=== PATIENT | female | born 1975 | race Two or more races ===

== ENCOUNTER → 2021-06-29 | Outpatient (REF) | LOC: M LABSMTC 12:56 | PROVIDERS: ATTEND Pediatrics | DX: Z20.822 Contact with and (suspected) exposure to COVID-19 (principal) ==

== ENCOUNTER 2021-07-16 09:09 | Emergency (ER) | payer OTHER ==
[~2021-07-16] VITALS: Ht 170.2 cm; Wt 89.6 kg
[2021-07-16] MEDS ORDERED: ADDE1TAB14 PO (09:29)
[2021-07-16] MEDS ORDERED: LAMO25TA4 (09:29)
[2021-07-16] MEDS ORDERED: AMIT75TA (09:29)
[2021-07-16] MEDS ORDERED: ROSU20TA5 (09:29)
[2021-07-16] MEDS ORDERED: JARD1TAB3 (09:29)
[2021-07-16] MEDS ORDERED: ALBU8.5H (09:29)
[2021-07-16] MEDS ORDERED: TRUL0.5I (09:29)
[2021-07-16] MEDS ORDERED: RABE1TAB4 (09:29)
[2021-07-16] MEDS ORDERED: DIAZ5TAB (09:29)
[2021-07-16] MEDS ORDERED: TIZA4CAP (09:29)
[2021-07-16] MEDS ORDERED: MONT10TA97 (09:29)
[2021-07-16] MEDS ORDERED: HYDR-3363 (09:29)
[2021-07-16] MEDS ORDERED: ROPI2TAB3 (09:29)
[2021-07-16] MEDS ORDERED: AZEL1SPR3 (09:29)
[2021-07-16] MEDS ORDERED: ONDANSETRON 4MG/2ML VIAL IV ONE (10:05)
[2021-07-16] MEDS ORDERED: NS 1,000 ML IV ONE (10:05)
[2021-07-16 10:30] LABS: BASO % 0.3 % (0.0-1.0); EOS # 0.1 10^3/uL (0.0-0.5); EOS % 1.5 % (0.0-3.0); HEMATOCRIT 45.8 % (36.0-47.0); HEMOGLOBIN 15.3 g/dl (12.0-15.5); LYMPH % 37.4 % (24.0-44.0); MEAN CORPUSCULAR HGB CONC 33.4 g/dl (32.0-36.5); MEAN CORPUSCULAR VOLUME 83.7 fl (80.0-96.0); MONO # 0.6 10^3/uL (0.0-0.8); MONO % 7.4 % (2.0-8.0); NEUTROPHILS # 4.3 10^3/uL (1.5-8.5); NEUTROPHILS % 53.1 % (36.0-66.0); PLATELET COUNT, AUTOMATED 212 10^3/uL (150-450); RED BLOOD COUNT 5.47 10^6/uL (4.00-5.40)
[2021-07-16 11:04] LABS: ALBUMIN 3.8 GM/DL (3.2-5.2); ALT/SGPT 34 U/L (12-78); BILIRUBIN,DIRECT 0.1 MG/DL (0.0-0.2); BILIRUBIN,TOTAL 0.6 MG/DL (0.2-1.0); BLOOD UREA NITROGEN 12 MG/DL (7-18); CALCIUM LEVEL 8.8 MG/DL (8.5-10.1); CARBON DIOXIDE LEVEL 28 MEQ/L (21-32); CHLORIDE LEVEL 106 MEQ/L (98-107); CREATININE FOR GFR 0.66 MG/DL (0.55-1.30); GLOMERULAR FILTRATION RATE > 60.0 (>58); GLUCOSE, FASTING 113 MG/DL (70-100); LIPASE 39 U/L (73-393); POTASSIUM SERUM 3.8 MEQ/L (3.5-5.1); SODIUM LEVEL 140 MEQ/L (136-145); TOTAL PROTEIN 6.9 GM/DL (6.4-8.2)
[2021-07-16] MEDS ORDERED: DOXY-443 PO (11:17)
[2021-07-16] MEDS ORDERED: ONDA4TAB6 PO (11:17)
[2021-07-16 11:45] VITALS: BP 122/68
== END 2021-07-16 11:55 | disposition home or self-care (01) ==
LOC: M ED 09:09
DX: J18.9 Pneumonia, unspecified organism (principal); E11.9 Type 2 diabetes mellitus without complications; I10 Essential (primary) hypertension; J45.909 Unspecified asthma, uncomplicated; E78.5 Hyperlipidemia, unspecified; F33.9 Major depressive disorder, recurrent, unspecified; F41.9 Anxiety disorder, unspecified; K21.9 Gastro-esophageal reflux disease without esophagitis; K58.9 Irritable bowel syndrome, unspecified; M79.7 Fibromyalgia; G25.81 Restless legs syndrome; Z79.899 Other long term (current) drug therapy; Z79.84 Long term (current) use of oral hypoglycemic drugs; Z88.0 Allergy status to penicillin; Z88.1 Allergy status to other antibiotic agents; Z88.2 Allergy status to sulfonamides; Z88.8 Allergy status to other drugs, medicaments and biological substances; F17.210 Nicotine dependence, cigarettes, uncomplicated
CPT/HCPCS: 71046; 80048; 80076; 83690; 85025; 96361; 96374; 99284; J2405